=== PATIENT | female | born 1975 | race Caucasian/White ===

== ENCOUNTER 2017-08-14 16:36 | Emergency (ER) | payer OTHER ==
--- NOTE | 2017-08-14 17:41 | UC ---
Dizzy HPI HPI Summary: SUDDEN ONSET OF LIGHTHEADEDNESS/DIZZINESS TODAY ABOUT 1 HR [employer]ARK [employer] WHILE PT WAS GETTING READY TO GO OUT TO AN EVENT. MOUTH WENT DRY. TOOK A COUPLE OF SIPS OF WATER THAT DID NOT HELP. ADMITS SHE DID NOT DRINK MUCH TODAY AT ALL. HAS CHILLS AND FEELS HEAD PRESSURE. IS UNDER A LOT OF STRESS AT HOME DEALING WITH THE CHRONIC ILLNESS OF HER YOUNGER SON. HAS UNDERLYING ANXIETY ALREADY. DENIES CP, SOB, NAUSEA, ARM PAIN, SWEATS. NO WEAKNESS, NUMBNESS/TINGLING, SLURRED SPEECH OR CONFUSION. - History Of Current Complaint Chief Complaint: UCGeneralIllness Stated Complaint: WEAKNESS Hx Obtained From: Patient, Family/Grease Remover - Onset/Duration: Sudden Onset, Lasting Hours, Still Present - BUT IMPROVED Timing: Constant Severity Initially: Moderate Severity Currently: Mild Pain Intensity: 0 Pain Scale Used: 0-10 Numeric Character: Lightheaded, Dizzy Aggravating Factor(s): Nothing Alleviating Factor(s): Nothing Associated Signs And Symptoms: Negative: Nausea, Vomiting, Diaphoresis, Tinnitus , Chest Pain, SOB, Palpitations, Unsteady Gait, Visual Changes - Allergies/Home Medications Allergies/Adverse Reactions: Allergies Allergy/AdvReac Type Severity Reaction Status Date / Time No Known Allergies Allergy Verified 08/14/17 16:45 PMH/Surg Hx/FS Hx/Imm Hx Psychological History: Anxiety - Surgical History Surgical History: None - Family History Known Family History: Positive: Cardiac Disease - Social History Alcohol Use: None Substance Use Type: None Smoking Status (MU): Never Smoked Tobacco Review of Systems Constitutional: Chills ENT: Other - DRY MOUTH Respiratory: Negative Cardiovascular: Negative Gastrointestinal: Negative Neurological: Other - DIZZY Psychological: Anxious All Other Systems Reviewed And Are Negative: Yes Physical Exam Triage Information Reviewed: Yes Appearance: Well-Appearing, No Pain Distress, Well-Nourished, Other: - SEEMS ANXIOUS Vital Signs: Initial Vital Signs Temp 98.5 F 08/14/17 16:45 Pulse 110 08/14/17 16:45 Resp 16 08/14/17 16:45 BP 138/79 08/14/17 16:45 Pulse Ox 100 08/14/17 16:45 Vital Signs Reviewed: Yes Eyes: Positive: Conjunctiva Clear ENT: Positive: Hearing grossly normal Neck: Positive: Supple, Nontender, No Lymphadenopathy Respiratory Exam: Normal Cardiovascular Exam: Normal Abdomen Description: Positive: Soft Musculoskeletal: Positive: No Edema Neurological: Positive: Alert Psychological: Positive: Normal Response To Family, Age Appropriate Behavior Skin: Negative: rashes Diagnostics - EKG Cardiac Rate: NL Cardiac Rhythm: Sinus: Normal - 87 BPM Ectopy: None ST Segment: Normal Re-Evaluation - Re-Evaluation First Eval Re-Evaluation Time: 18:30 - FEELS BETTER AFTER SOME REST AND 500MG NS Change: Improved Dizzy Course/Dx - Course Course Of Treatment: PT HAS DECLINED ER TRANSFER. LOW SUSPICION FOR CARDIAC ETIOLOGY OR STROKE. FEELS BETTER AFTER SOME REST IN THE ROOM AND IVF. DISCUSSED PCP F/U TO ADDRESS ANXIETY. TO ER WITHOUT FAIL IF SX RECUR. - Differential Dx/Diagnosis Provider Diagnoses: ANXIETY Discharge - Discharge Plan Condition: Stable Disposition: HOME Patient Education Materials: Anxiety (ED) Referrals: Charleen Zayas MD [Medical Doctor] - 2 Weeks Additional Instructions: YOUR SYMPTOMS MAY CERTAINLY HAVE BEEN DUE TO ANXIETY AND STRESS. YOU HAVE DECLINED ER TRANSFER TODAY WHICH IS REASONABLE. LOW SUSPICION FOR CARDIAC ETIOLOGY OR STROKE. GO TO THE ER WITHOUT FAIL IF YOUR SYMPTOMS RECUR. FOLLOW-UP WITH YOUR PCP FOR FURTHER EVALUATION AND TO DISCUSS MANAGEMENT OPTIONS.
[2017-08-14] MEDS ORDERED: NS 0.9% 1000 ML* 1,000 ML IV SCH (17:45)
[2017-08-14 18:29] VITALS: BP 105/73
== END 2017-08-14 18:39 | disposition home or self-care (01) ==
LOC: UCEAST 16:36
DX: F41.9 Anxiety disorder, unspecified (principal); R42 Dizziness and giddiness
CPT/HCPCS: 93005; 96360; 99211; G0463

== ENCOUNTER 2018-08-21 18:59 | Emergency (ER) | payer OTHER ==
[2018-08-21] MEDS ORDERED: diPHENhydraMINE PO* 50 MG PO ONE (19:06)
[2018-08-21] MEDS ORDERED: Famotidine TAB* 20 MG PO ONE (19:07)
[2018-08-21] MEDS ORDERED: predniSONE TAB* 20 MG PO ONE (19:07)
--- NOTE | 2018-08-21 19:12 | UC ---
Allergic Reaction HPI - HPI Summary HPI Summary: 43 year old female presents with allergic reaction today. She states that she got stung by a bee today on her foot. She states that her symptoms have been progressing. She states it started with some erythema to her foot and now she feels that there are hives across her body. She also states she feels anxious and dizzy. no chest pain, SOB, abdominal pain, n/v. no sore throat or difficulty swallowing. has not taken anything for her symptoms. - History of Current Complaint Chief Complaint: UCAllergicReaction Stated Complaint: BEE STING Time Seen by Provider: 08/21/18 19:04 Hx Last Menstrual Period: LAST WEEK Pain Intensity: 0 - Allergies/Home Medications Allergies/Adverse Reactions: Allergies Allergy/AdvReac Type Severity Reaction Status Date / Time No Known Allergies Allergy Verified 08/21/18 19:10 Home Medications: Home Medications Garlic [Sm Garlic] 150 mg PO DAILY 08/21/18 [History Confirmed 08/21/18] PMH/Surg Hx/FS Hx/Imm Hx Endocrine History: Other - no DM Cardiovascular History: Other - no cardiac disease - Surgical History Surgical History: None - Family History Known Family History: Positive: Cardiac Disease - Social History Alcohol Use: None Substance Use Type: None Smoking Status (MU): Never Smoked Tobacco Review of Systems All Other Systems Reviewed And Are Negative: Yes Constitutional: Positive: Negative Skin: Positive: Rash Cardiovascular: Positive: Negative Gastrointestinal: Positive: Negative Physical Exam Triage Information Reviewed: Yes Appearance: Well-Appearing Vital Signs: Initial Vital Signs Temp 98.3 F 08/21/18 19:07 Pulse 73 08/21/18 19:07 Resp 10 08/21/18 19:07 BP 134/79 08/21/18 19:07 Pulse Ox 100 08/21/18 19:07 Vital Signs Reviewed: Yes Eyes: Positive: Conjunctiva Clear ENT: Positive: Normal ENT inspection, Pharynx normal, TMs normal Respiratory: Positive: Lungs clear, Normal breath sounds Cardiovascular: Positive: RRR Abdomen Description: Positive: Nontender, Soft Bowel Sounds: Positive: Present Musculoskeletal Exam: Normal Neurological Exam: Normal Psychological Exam: Normal Skin: Positive: Rashes - erythema to right foot Re-Evaluation - Re-Evaluation First Eval Re-Evaluation Time: 19:51 Change: Worse Comment: rash appears better but is more itchy but still no resp involvement. lungs CTA at recheck and pharynx normal after observed for 45 mins. discussed that hives will take time to get better and as long as no respiratory involvement do not need to give epi Allergic Reaction Course/Dx - Course Course Of Treatment: 43F year old presents with allergic reaction today to bees. she admits to a rash. no n/v, abdominal pain, chest pain, SOB, or sore throat. on exam has erythema to right foot. lungs CTA. pharynx normal. gave benadryl, pepcid, and prednisone and no respiratory involvement but rash is same. will prescribed such. bp is in pre-htn range. patient understand and agrees with plan. - Differential Dx/Diagnosis Differential Diagnosis/HQI/PQRI: Anaphylaxis, Local Allergic Reaction, Urticaria Provider Diagnoses: allergic reaction to bee sting Discharge - Sign-Out/Discharge Documenting (check all that apply): Patient Departure All imaging exams completed and their final reports reviewed: No Studies - Discharge Plan Condition: Good Disposition: HOME Prescriptions: Famotidine TAB* [Pepcid 20 MG TAB*] 20 mg PO BID #8 tab hydrOXYzine HCL TAB* [Atarax 25 MG TAB*] 25 mg PO QID PRN #16 tab PRN Reason: Hives predniSONE TAB* [Deltasone TAB*] 50 mg PO DAILY #4 tab Patient Education Materials: Urticaria (ED) Referrals: No Primary Care Phys,NOPCP [Primary Care Provider] - Additional Instructions: Take hydroxyzine every 6 hours for next 4 days take pepcid twice a day for 4 days Take steroid once a day for 4 days starting tomorrow Return to ED if shortness of breath, chest pain, or if develop any new or worsening symptoms - Billing Disposition and Condition Condition: GOOD Disposition: Home
[2018-08-21] MEDS ORDERED: diPHENhydraMINE PO* 25 MG PO ONE (19:56)
[2018-08-21 20:09] VITALS: BP 122/58
== END 2018-08-21 20:05 | disposition home or self-care (01) ==
LOC: UCEAST 18:59
DX: T63.441A Toxic effect of venom of bees, accidental (unintentional), initial encounter (principal); L25.8 Unspecified contact dermatitis due to other agents; Y92.9 Unspecified place or not applicable
CPT/HCPCS: 99213; A9270-GY; G0463; J7512

== ENCOUNTER 2019-06-18 17:57 | Emergency (ER) | payer OTHER ==
--- NOTE | 2019-06-18 18:02 | UC ---
Skin Complaint HPI - HPI Summary HPI Summary: 44 yo female presents with bee sting to right calf. She tells me that last night she was stung by a bee to her right calf. She took a benadryl last night and soaked her leg in warm epsom salts. Today she had redness and swelling to the area. She has not elevated or iced her leg today. Has not taken any antihistamines today. Denies hx of allergy to bees. Denies fever, chills, or pain. - History of Current Complaint Chief Complaint: UCAllergicReaction Time Seen by Provider: 06/18/19 18:02 Stated Complaint: BEE STING Hx Obtained From: Patient Hx Last Menstrual Period: LAST WEEK Onset/Duration: Sudden Onset Onset Severity: Mild Current Severity: Mild Pain Intensity: 3 Pain Scale Used: 0-10 Numeric - Allergy/Home Medications Allergies/Adverse Reactions: Allergies Allergy/AdvReac Type Severity Reaction Status Date / Time No Known Allergies Allergy Verified 06/18/19 18:04 Home Medications: Home Medications diphenhydrAMINE HCl [Benadryl Allergy 25 MG CAP] 50 mg PO 06/18/19 [History] PMH/Surg Hx/FS Hx/Imm Hx - Additional Past Medical History Additional PMH: None - Surgical History Surgical History: None - Family History Known Family History: Positive: Cardiac Disease - Social History Lives: With Family Alcohol Use: None Substance Use Type: None Smoking Status (MU): Never Smoked Tobacco Review of Systems All Other Systems Reviewed And Are Negative: No Constitutional: Positive: Negative Skin: Positive: Other - Bee sting right calf Respiratory: Positive: Negative Cardiovascular: Positive: Negative Neurovascular: Positive: Negative Musculoskeletal: Positive: Negative Neurological: Positive: Negative Psychological: Positive: Negative Physical Exam - Summary Physical Exam Summary: GENERAL: NAD. WDWN. No pain distress. SKIN: RIGHT CALF: bee sting at mid calf with 10.0cm of surround mild erythema and edema. NTTP. No induration, open wound, streaking, or discharge. Mild swelling of right ankle and foot without erythema. NECK: Supple. Nontender. No lymphadenopathy. CHEST: No accessory muscle use. Breathing comfortably and in no distress. CV: Pulses intact. Cap refill <2seconds NEURO: Alert. PSYCH: Age appropriate behavior. Triage Information Reviewed: Yes Vital Signs: Vital Signs: Temp Pulse Resp BP Pulse Ox 98.7 F 73 18 129/76 100 06/18/19 18:00 06/18/19 18:00 06/18/19 18:00 06/18/19 18:00 06/18/19 18:00 Vital Signs Reviewed: Yes Course/Dx - Course Course Of Treatment: Bee sting to right calf. Currently appears to be more of a localized reaction with surrounding edema - likely due to pt not elevating leg or taking any antihistamines today. Will rx for keflex to start if symptoms worsen or do not improve within 48hrs with rest, ice, elevation, and antihistamines. - Diagnoses Provider Diagnosis: Bee sting Discharge ED - Sign-Out/Discharge Documenting (check all that apply): Patient Departure All imaging exams completed and their final reports reviewed: No Studies - Discharge Plan Condition: Stable Disposition: HOME Prescriptions: Cephalexin CAP* [Keflex CAP*] 500 mg PO TID #21 cap Patient Education Materials: Cellulitis (ED), Insect Bite or Sting (ED) Referrals: No Primary Care Phys,NOPCP [Primary Care Provider] - Additional Instructions: If you develop a fever, shortness of breath, chest pain, new or worsening symptoms - please call your PCP or go to the ED immediately. 1) Rest, Ice, and elevate your leg to reduce swelling and redness 2) Take a claritin or zyrtec in the morning and then a benadryl at night 3) If the redness worsens or does not improve by Wednesday 06/20 - please start the antibiotic and be rechecked if symptoms do not improve - Billing Disposition and Condition Condition: STABLE Disposition: Home - Attestation Statements Provider Attestation: Per institutional requirements, I have reviewed the chart, however, I was not consulted specifically or made aware of this patient by the midlevel provider. I did not personally evaluate, interact with , or disposition this patient.
[2019-06-18 18:04] VITALS: BP 129/76
== END 2019-06-18 18:20 | disposition home or self-care (01) ==
LOC: UCEAST 17:57
DX: T63.441A Toxic effect of venom of bees, accidental (unintentional), initial encounter (principal); Y92.9 Unspecified place or not applicable
CPT/HCPCS: 99212; G0463

== ENCOUNTER 2019-10-12 09:06 | Emergency (ER) | payer OTHER ==
[2019-10-12 09:16] VITALS: BP 116/77
--- NOTE | 2019-10-12 09:54 | UC ---
Minor Trauma HPI - HPI Summary HPI Summary: The patient is a 44-year-old female who slipped and fell on the ice about an hour ago. She landed on her left arm. Initially she was unable to abductor shoulder. She initially also had left elbow and left wrist pain. She states that since the fall her range of motion has returned to normal and her elbow and wrist pain are minimal. She is right handed. She has a remote history of a left shoulder fracture. - History of Current Complaint Chief Complaint: UCUpperExtremity Stated Complaint: ARM INJURY Time Seen by Provider: 10/12/19 09:45 Hx Obtained From: Patient Hx Last Menstrual Period: 10/01/19 Onset/Duration: Sudden Onset Onset Of Pain: Immediate Severity Initially: Moderate Severity Currently: Mild Pain Intensity: 2 Pain Scale Used: 0-10 Numeric Mechanism Of Injury: Fall From A Standing Position Aggravating Factor(s): Nothing Alleviating Factor(s): Other: - spontaneous improved Associated Signs And Symptoms: Negative: Loss Of Consciousness, Ecchymosis, Swelling Body - Head: 1 - currently no pain 2 - minimal pain 3 - minimal pain - Allergies/Home Medications Allergies/Adverse Reactions: Allergies Allergy/AdvReac Type Severity Reaction Status Date / Time shrimp Allergy throat Verified 10/12/19 09:16 closing Home Medications: Home Medications NK [No Home Medications Reported] 10/12/19 [History Confirmed 10/12/19] PMH/Surg Hx/FS Hx/Imm Hx Previously Healthy: Yes - Surgical History Surgical History: None - Family History Known Family History: Positive: Cardiac Disease, Non-Contributory - Social History Alcohol Use: None Substance Use Type: None Smoking Status (MU): Never Smoked Tobacco Review of Systems All Other Systems Reviewed And Are Negative: Yes Constitutional: Positive: Negative Skin: Positive: Negative Eyes: Positive: Negative ENT: Positive: Negative Respiratory: Positive: Negative Cardiovascular: Positive: Negative Gastrointestinal: Positive: Negative Genitourinary: Positive: Negative Motor: Positive: Negative Neurovascular: Positive: Negative Musculoskeletal: Positive: Negative Neurological: Positive: Negative Psychological: Positive: Negative Physical Exam Triage Information Reviewed: Yes Appearance: Well-Appearing, No Pain Distress, Well-Nourished Vital Signs: Initial Vital Signs Temp 98 F 10/12/19 09:13 Pulse 75 10/12/19 09:13 Resp 16 10/12/19 09:13 BP 116/77 10/12/19 09:13 Pulse Ox 100 10/12/19 09:13 Vital Signs Reviewed: Yes Eyes: Positive: Conjunctiva Clear ENT: Positive: Hearing grossly normal, Uvula midline. Negative: Nasal congestion, Nasal drainage, Trismus, Muffled voice, Hoarse voice Neck: Positive: Supple, Nontender, No Lymphadenopathy Respiratory: Positive: Lungs clear, Normal breath sounds, No respiratory distress, No accessory muscle use Cardiovascular: Positive: RRR, No Murmur Bowel Sounds: Positive: Present Musculoskeletal: Positive: ROM Intact, No Edema Neurological: Positive: Alert Psychological Exam: Normal Skin Exam: Normal Minor Trauma Course/Dx - Differential Dx/Diagnosis Provider Diagnosis: Injury of left upper extremity Discharge ED - Sign-Out/Discharge Documenting (check all that apply): Patient Departure All imaging exams completed and their final reports reviewed: No Studies - Discharge Plan Condition: Stable Disposition: HOME Patient Education Materials: Sprain (ED) Referrals: No Primary Care Phys,NOPCP [Primary Care Provider] - [facility] [Outside] - If Needed (recheck next week if not completely better) Additional Instructions: tylenol or advil if needed - Billing Disposition and Condition Condition: STABLE Disposition: Home
== END 2019-10-12 10:00 | disposition home or self-care (01) ==
LOC: UCEAST 09:06
DX: S49.92XA Unspecified injury of left shoulder and upper arm, initial encounter (principal); W00.0XXA Fall on same level due to ice and snow, initial encounter; Y92.9 Unspecified place or not applicable
CPT/HCPCS: 99211; G0463